=== PATIENT | male | born 1980 | race Caucasian/White ===

== ENCOUNTER 2020-06-25 21:27 | Observation (INO) | payer SELFPAY ==
[~2020-06-25] VITALS: Ht 182.9 cm; Wt 80.5 kg
[~2020-06-25 21:27] MED LIST: PEN-VEE K500 MG PO
[2020-06-25 21:45] VITALS: BP 158/100
[2020-06-26 00:07] VITALS: BP 148/90
[2020-06-26 00:08] LABS: BASO % 0.1 % (0.0-1.0); EOS # 0.1 10*3/uL (0.0-0.4); EOS % 0.8 % (1.0-4.0); HEMATOCRIT 40.2 % (42.0-52.0); LYMPH # 2.4 10*3/uL (1.3-4.4); LYMPH % 21.8 % (27.0-41.0); MEAN CELL VOLUME 85.7 fl (80.0-94.0); MEAN CORPUSCULAR HGB 27.3 pg (27.0-31.0); MEAN CORPUSCULAR HGB CONC 31.8 g/dl (33.0-37.0); MEAN PLATELET VOLUME 9.8 fl (9.6-12.3); MONO # 0.7 10*3/uL (0.1-1.0); MONO % 6.4 % (3.0-9.0); NEUT # 7.8 10*3/uL (2.3-7.9); NEUT % 70.6 % (47.0-73.0); PLATELET COUNT AUTOMATED 374 10*3/uL (130-400); RED BLOOD COUNT 4.69 10*6/uL (4.50-5.90); RED CELL DISTRI WIDTH 13.2 % (0-14.5); WHITE BLOOD COUNT 11.1 10*3/uL (4.8-10.8)
[2020-06-26 00:24] LABS: ALBUMIN 3.1 gm/dl (3.1-4.5); ALKALINE PHOSPHATASE 81 U/L (45-117); BUN 13 mg/dl (7-24); CHLORIDE 100 mmol/L (98-107); CREATININE 0.95 mg/dL (0.70-1.30); POTASSIUM 3.6 mmol/L (3.5-5.1); SGOT/AST 9 IU/L (3-35); SGPT/ALT 18 U/L (12-78); SODIUM 134 mmol/L (136-145); TOTAL PROTEIN 7.9 gm/dL (6.4-8.2)
[2020-06-26 05:10] VITALS: BP 136/88
[2020-06-26 05:58] LABS: BASO % 0.2 % (0.0-1.0); BUN 12 mg/dl (7-24); CHLORIDE 102 mmol/L (98-107); CREATININE 0.76 mg/dL (0.70-1.30); EOS # 0.1 10*3/uL (0.0-0.4); EOS % 0.9 % (1.0-4.0); HEMATOCRIT 37.7 % (42.0-52.0); LYMPH # 3.3 10*3/uL (1.3-4.4); LYMPH % 25.2 % (27.0-41.0); MEAN CELL VOLUME 86.5 fl (80.0-94.0); MEAN CORPUSCULAR HGB 27.3 pg (27.0-31.0); MEAN CORPUSCULAR HGB CONC 31.6 g/dl (33.0-37.0); MEAN PLATELET VOLUME 10.2 fl (9.6-12.3); MONO % 7.6 % (3.0-9.0); NEUT # 8.6 10*3/uL (2.3-7.9); NEUT % 65.7 % (47.0-73.0); PLATELET COUNT AUTOMATED 338 10*3/uL (130-400); POTASSIUM 3.5 mmol/L (3.5-5.1); RED BLOOD COUNT 4.36 10*6/uL (4.50-5.90); RED CELL DISTRI WIDTH 13.1 % (0-14.5); SODIUM 138 mmol/L (136-145); WHITE BLOOD COUNT 13.1 10*3/uL (4.8-10.8)
[2020-06-26 07:30] VITALS: BP 159/91
[2020-06-26 10:19] VITALS: BP 150/78
[2020-06-26 11:08] VITALS: BP 160/94
== END 2020-06-26 14:13 | disposition left against medical advice (07) ==
LOC: ED 21:27 → EDHOLD 06-26 01:49 → 5E 06-26 06:48
PROVIDERS: Emergency Medicine; Student in an Organized Health Care Education/Training Program; ADMIT Student in an Organized Health Care Education/Training Program; ATTEND Student in an Organized Health Care Education/Training Program
DX: K13.0 Diseases of lips (principal); L02.01 Cutaneous abscess of face; F12.10 Cannabis abuse, uncomplicated; R00.0 Tachycardia, unspecified; E87.2 Acidosis; K02.9 Dental caries, unspecified; E87.1 Hypo-osmolality and hyponatremia; R73.9 Hyperglycemia, unspecified; E44.0 Moderate protein-calorie malnutrition; M54.5 Low back pain; G89.29 Other chronic pain; F17.210 Nicotine dependence, cigarettes, uncomplicated; Z71.6 Tobacco abuse counseling

== ENCOUNTER → 2022-04-14 | Outpatient (CLI) | payer MEDICAID ==
[2022-04-14 09:49] LABS: HEMATOCRIT 40.3 % (42.0-52.0); MEAN CELL VOLUME 85.7 fl (80.0-94.0); MEAN CORPUSCULAR HGB 27.2 pg (27.0-31.0); MEAN CORPUSCULAR HGB CONC 31.8 g/dl (33.0-37.0); MEAN PLATELET VOLUME 10.8 fl (9.6-12.3); PLATELET COUNT AUTOMATED 339 10*3/uL (130-400); WHITE BLOOD COUNT 12.5 10*3/uL (4.8-10.8)
[2022-04-14 09:53] LABS: MANUAL DIFF REFLEX YES
[2022-04-14 10:19] LABS: CREATININE 2.77 mg/dL (0.70-1.30); POTASSIUM 4.5 mmol/L (3.4-5.1); TOTAL PROTEIN 8.1 gm/dL (6.0-8.0)
[2022-04-14 10:21] LABS: ATYPICAL LYMPHS 1 % (0-0); PLATELET SUFFICIENCY NORMAL (NORMAL); TOTAL CELLS COUNTED 100 #CELLS
== END | disposition home or self-care (01) ==
LOC: LAB 08:47
PROVIDERS: ATTEND Nurse Practitioner Family
DX: Z00.01 Encounter for general adult medical examination with abnormal findings (principal); M51.36 Other intervertebral disc degeneration, lumbar region; M51.34 Other intervertebral disc degeneration, thoracic region; E66.3 Overweight; G89.29 Other chronic pain; M54.50 Low back pain, unspecified; M48.05 Spinal stenosis, thoracolumbar region; I70.0 Atherosclerosis of aorta

== ENCOUNTER 2025-01-20 01:25 | Emergency (ER) | payer OTHER ==
[~2025-01-20] VITALS: Ht 182.8 cm; Wt 86.2 kg
[2025-01-20] MEDS ORDERED: Dexamethasone Sodium Phospha 20 MG/5 ML VIAL IM ONE (01:55)
[2025-01-20] MEDS ORDERED: MELOXICAM15 MG PO (03:31)
== END 2025-01-20 03:44 | disposition home or self-care (01) ==
LOC: ED 01:25
DX: M19.90 Unspecified osteoarthritis, unspecified site (principal); F17.210 Nicotine dependence, cigarettes, uncomplicated; F12.90 Cannabis use, unspecified, uncomplicated; Z98.890 Other specified postprocedural states